=== PATIENT | male | born 1965 | race Caucasian/White ===

== ENCOUNTER → 2023-08-15 08:21 | Outpatient (REF) | payer OTHER, SELFPAY | LOC: EMG 08:21 | PROVIDERS: ATTENDING PHYSICIAN Orthopaedic Surgery; FAMILY PHYSICIAN Emergency Medicine | DX: R20.0 Anesthesia of skin (principal) | CPT/HCPCS: 95886; 95909 ==

== ENCOUNTER → 2023-09-22 13:03 | Outpatient (REF) | payer OTHER, SELFPAY | LOC: MRI 3T 13:03 | PROVIDERS: ATTENDING PHYSICIAN Orthopaedic Surgery; FAMILY PHYSICIAN Emergency Medicine | DX: R20.0 Anesthesia of skin (principal); M79.641 Pain in right hand | CPT/HCPCS: 72141 ==

== ENCOUNTER → 2025-01-17 08:18 | Outpatient (REF) | payer OTHER, SELFPAY | LOC: RAD 08:18 | PROVIDERS: ATTENDING PHYSICIAN Emergency Medicine | DX: Z87.891 Personal history of nicotine dependence (principal) | CPT/HCPCS: 76770 ==